=== PATIENT | female | born 1960 | race Caucasian/White ===

== ENCOUNTER 2018-12-03 15:30 | Emergency (ER) | payer BC ==
[~2018-12-03 15:30] MED LIST: Iopamidol 370 76% 100 ML VIAL ONE; Sodium Chloride 0.9% 1,000 ML BAG ONE
[2018-12-03 16:26] LABS: #Basophils 0.1 thou/uL (0.0-0.2); #Eosinphils 0.4 thou/uL (0.0-0.7); #Lymphocytes 2.5 thou/uL (1.20-3.40); #Monocytes 0.5 thou/uL (0.11-0.59); #Neutrophils 5.1 thou/uL (1.40-6.50); %Basophils 0.6 % (0.0-1.0); %Eosinophils 4.5 % (0.0-10.0); %Lymphocytes 29.6 % (21.0-51.0); %Monocytes 5.8 % (0.0-10.0); %Neutrophils 59.5 % (42.0-75.0); Hemoglobin 13.8 g/dL (12.0-16.0); Mean Corpuscular HGB CONC 31.6 g/dL (32.0-36.0); Mean Corpuscular Hemoglobin 26.1 pg (27.0-31.0); Mean Corpuscular Volume 82.6 fL (78.0-98.0); Mean Platelet Volume 9.3 fL (7.4-10.4); Platelet Count 205 thou/uL (130-400); RBC Distribution Width 12.8 % (11.5-14.5); White Blood Cell (WBC) Count 8.5 thou/uL (4.8-10.8)
[2018-12-03 16:37] LABS: ALT (SGPT) 34 U/L (8-55); AST (SGOT) 25 U/L (5-34); Alkaline Phosphatase 64 U/L (40-150); Anion Gap 14 mmol/L (10-20); BUN (Urea Nitrogen) 11 mg/dL (9.8-20.1); Bilirubin, Total 0.4 mg/dL (0.2-1.2); Calc. Creatinine Clearance 0 mL/min (70-130); Calcium 9.5 mg/dL (7.8-10.44); Carbon Dioxide 23 mmol/L (22-29); Chloride 108 mmol/L (98-107); Estimated GFR-MDRD 77; Globulin 3.3 g/dL (2.4-3.5); Glucose 127 mg/dL (70-105); Potassium 3.8 mmol/L (3.5-5.1); Protein, Total 7.3 g/dL (6.0-8.3); Sodium 141 mmol/L (136-145)
[2018-12-03] MEDS ORDERED: predniSONE 20 MG TAB ONE (18:35)
--- NOTE | 2018-12-03 20:07 | CT ---
CT OF ABDOMEN AND PELVIS PERFORMED WITH CONTRAST ENHANCEMENT: 12/03/18 HISTORY: Diffuse abdominal pain. History of irritable bowel syndrome. Pain started two days ago with bloody st ools. The lung bases are clear. Partially visualized breast implants are noted. There are diffuse fatty changes of the liver. The spleen is within normal limits of size. The pancre as and gallbladder regions are unremarkable. Right and left adrenal glands and right and left kidneys are normal in appearance. There is no signif icant periaortic or mesenteric adenopathy. No bowel wall findings other than minimal diverticulosis. CT OF PELVIS PERFORMED WITH CONTRAST ENHANCEMENT: There is some mild colonic diverticulosis seen. Postoperative changes along the abdominal wall are no abraham. An appendix is not definitively visualized but there is no inflammatory process. There is no hemant dence of any adenopathy, mass or free fluid. IMPRESSION: 1. Colonic diverticulosis. 2. Fatty changes of the liver. 3. Small hiatal hernia. POS: [facility]
== END 2018-12-03 18:46 | disposition home or self-care (01) ==
LOC: MADERS 15:30
DX: K58.9 Irritable bowel syndrome, unspecified (principal); K62.5 Hemorrhage of anus and rectum
CPT/HCPCS: 36415; 74177; 80053; 83605; 85025; J7050; J7512; Q9967